=== PATIENT | female | born 1985 | race Two or more races ===

== ENCOUNTER 2018-12-02 01:07 | Emergency (ER) | payer OTHER ==
[~2018-12-02] VITALS: Ht 157.5 cm; Wt 65.8 kg
[2018-12-02 01:20] VITALS: BP 123/66
[2018-12-02 01:29] LABS: BILIRUBIN,URINE NEGATIVE (NEG); CLARITY,URINE CLEAR; COLOR,URINE YELLOW; NITRITE,URINE NEGATIVE (NEG); PH,URINE 5.5; PROTEIN,URINE NEGATIVE (NEG-TRACE); UROBILINOGEN,URINE 0.2 mg/dL (0.2 mg/dL)
[2018-12-02 02:06] LABS: BACTERIA,URINE 0 /HPF (0-FEW); RBC,URINE OCC /HPF (0-2)
[2018-12-02 02:07] LABS: SQUAMOUS EPITHELIAL CELL,UR OCC /LPF
[2018-12-02] MEDS ORDERED: NITR100C62 PO (02:38)
[2018-12-02] MEDS ORDERED: METR500T PO (02:38)
[2018-12-02] MEDS ORDERED: cefTRIAXone IM 250 MG VIAL IM ONE (02:45)
[2018-12-02] MEDS ORDERED: AZITHROMYCIN 250 MG TABLET. PO ONE (02:45)
--- NOTE | 2018-12-02 02:52 | PHYS DOC ---
Past Medical History Past Medical History: Other Additional Past Medical Histor: SHINGLES Past Surgical History: Additional Past Surgical Histo: X 5, 1 FALLOPIAN TUBE REMOVED Alcohol Use: Rarely Drug Use: None Adult General Chief Complaint Chief Complaint: PAIN ON URINATION HPI HPI Patient is a 33 year old female who is presenting with burning and pressure with urination and urinary frequency for the last couple days. In addition she is having migrating intermittent crampy abdominal pain and some vaginal discharge for the last 2 weeks ever since she had a new sexual partner she is concerned about STD. In addition she is worried about possible she did have 1 tube removed at one point in the past. Review of Systems Review of Systems Constitutional: Eyes: Denies change in visual acuity, redness, or eye pain [] HENT: Denies nasal congestion or sore throat [] Respiratory: Denies cough or shortness of breath [] Cardiovascular: No additional information not addressed in HPI [] GI: : Musculoskeletal: Denies back pain or joint pain [] Integument: Denies rash or skin lesions [] Neurologic: Denies headache, focal weakness or sensory changes [] Endocrine: Denies polyuria or polydipsia [] All other systems were reviewed and found to be within normal limits, except as documented in this note. Current Medications Current Medications Current Medications Medications (Trade) Dose Ordered Sig/Ledy Start Time Stop Time Status Last Admin Dose Admin Azithromycin (Zithromax) 1,000 mg 1X ONCE 12/02/18 02:45 12/02/18 02:46 DC 12/02/18 02:49 1,000 MG Ceftriaxone Sodium (Rocephin Im) 250 mg 1X ONCE 12/02/18 02:45 12/02/18 02:46 DC 12/02/18 02:49 250 MG Allergies Allergies Allergies Coded Allergies Type Severity Reaction Last Updated Verified No Known Drug Allergies 12/02/18 No Physical Exam Physical Exam Constitutional: Well developed, well nourished, no acute distress, non-toxic appearance. [] HENT: Normocephalic, atraumatic, bilateral external ears normal, oropharynx moist, no oral exudates, nose normal. [] Eyes: PERRLA, EOMI, conjunctiva normal, no discharge. [] Neck: Normal range of motion, no tenderness, supple, no stridor. [] Pulmonary: Normal respiratory effort no increased work of breathing no obvious chest wall trauma Abdomen: Bowel sounds normal, soft, no tenderness, no masses, no pulsatile masses. [] there is moderate vaginal discharge there is no cervical motion or adnexal tenderness. Skin: Warm, dry, no erythema, no rash. [] Back: No tenderness, no CVA tenderness. [] Extremities: No tenderness, no cyanosis, no clubbing, ROM intact, no edema. [] Neurologic: Alert and oriented X 3, normal motor function, normal sensory function, no focal deficits noted. [] Psychologic: Affect normal, judgement normal, mood normal. [] Current Patient Data Vital Signs Vital Signs Date Time Temp Pulse Resp B/P (MAP) Pulse Ox O2 Delivery O2 Flow Rate FiO2 12/02/18 01:20 98.4 92 16 123/66 (85) 99 Room Air 98.4 Lab Values Laboratory Tests Test 12/02/18 01:13 12/02/18 01:16 Urine Collection Type Unknown Urine Color Yellow Urine Clarity Clear Urine pH 5.5 Urine Specific Simpson 1.025 Urine Protein Negative mg/dL (NEG-TRACE) Urine Glucose (UA) Negative mg/dL (NEG) Urine Ketones (Stick) Negative mg/dL (NEG) Urine Blood Moderate (NEG) Urine Nitrite Negative (NEG) Urine Bilirubin Negative (NEG) Urine Urobilinogen Dipstick 0.2 mg/dL (0.2 mg/dL) Urine Leukocyte Esterase Moderate (NEG) Urine RBC Occ /HPF (0-2) Urine WBC 5-10 /HPF (0-4) Urine Squamous Epithelial Cells Occ /LPF Urine Bacteria 0 /HPF (0-FEW) POC Urine HCG, Qualitative Hcg negative (Negative) EKG EKG [] Radiology/Procedures Radiology/Procedures [] Course & Med Decision Making Course & Med Decision Making Pertinent Labs and Imaging studies reviewed. (See chart for details) []33-year-old female is not who is presenting with urinary frequency as well as pressure and burning with urination and some vaginal discharge. Patient was treated presumptively for STDs. I tried to order a wet prep that apparently were out what prepping the hospital at this night. Patient does say that she has malodorous discharge is very worried about that and so given the high pretest probability I discussed with the patient and we have opted to just treat with Flagyl. In addition ceftriaxone and azithromycin given in the emergency room and prescription for Bactrim and also for UTI. She knows cultures are pending at this time. Dragon Disclaimer Benedict Disclaimer This electronic medical record was generated, in whole or in part, using a voice recognition dictation system. Departure Departure Impression: Primary Impression: Urinary tract infection Disposition: HOME, SELF-CARE Condition: STABLE Patient Instructions: Urinary Tract Infection, Juzr-rr-[id number] Scripts Nitrofurantoin Monohyd/M-Cryst (MACROBID 100 MG CAPSULE) 100 Mg Capsule 1 CAP PO BID, #14 CAP Prov: BARNEY LAN MD 12/02/18 Metronidazole (FLAGYL) 500 Mg Tablet 1 TAB PO BID, #14 TAB Prov: BARNEY LAN MD 12/02/18 BARNEY LAN MD Dec 02, 2018 02:52
[2018-12-03 13:16] LABS: GC PROBE Negative (Negative)
== END 2018-12-02 02:56 | disposition home or self-care (01) ==
LOC: ER 01:07
DX: N39.0 Urinary tract infection, site not specified (principal)
CPT/HCPCS: 81001; 81025; 87086; 87491; 87591; 96372; 99283; J0696; Q0144; 36415

== ENCOUNTER 2021-07-03 11:17 | Emergency (ER) | payer SELFPAY ==
[~2021-07-03 11:17] MED LIST: METR500T PO; NITR100C62 PO
== END 2021-07-03 15:06 | disposition left against medical advice (07) ==
LOC: ER 11:17
DX: S19.9XXA Unspecified injury of neck, initial encounter (principal); Z53.21 Procedure and treatment not carried out due to patient leaving prior to being seen by health care provider; X58.XXXA Exposure to other specified factors, initial encounter; Y93.89 Activity, other specified; Y92.89 Other specified places as the place of occurrence of the external cause; Y99.8 Other external cause status